=== PATIENT | male | born 1960 | race Asian ===

== ENCOUNTER 2022-02-16 15:08 | Emergency (ER) | payer OTHER ==
[~2022-02-16] VITALS: Ht 170.2 cm; Wt 64.4 kg
[2022-02-16 15:08] VITALS: BP 149/95; TEMP 97.4
[~2022-02-16 15:08] MED LIST: ALBU90AE13 INH; ARIPIPRAZOLE15 MG PO; ARIPIPRAZOLE20 MG PO; BENZ1TAB43 PO; BENZTROPINE0.5 MG PO; BENZTROPINE2 MG PO; BISACODYL LAXATI5 MG PO; BREO ELLIPTA 101 INH INH; CELEXA10 MG PO; CELEXA20 MG PO; CELEXA40 MG PO; CITA20TA2 PO; CLON0.5T36 PO; CYAN10009 IM; DIVA250T2 PO; DIVA500T2 OR; DIVA500T2 PO; DIVALPROEX500 M1 PO; DOCU100C10 PO; DULCOLAX10 MG RE; DULCOLAX5 MG PO; FARXIGA10 MG PO; HYDR50CA21 PO; LITH300C3 PO; LITHIUM CARB150 MG PO; LITHIUM CARB300 M2 PO; LITHIUM CARB300 MG PO; LORA2INJ21 INJ; LORAZEPAM1 MG OR; MEDR150I3 IM; MEDR2.5T19 PO; METFORMIN HYDR850 MG PO; MOTRIN IB200 MG PO; NICOTINE T14 MG/24 H TD; OLANZAPINE20 M1 PO; PROVERA10 MG PO; PROVERA5 MG OR; PROVERA5 MG PO; QUET100T2 PO; QUET300T PO; RISP50IN IM; SENNA1 TAB PO; SEROQUEL100 MG OR; SEROQUEL200 MG OR; SEROQUEL200 MG PO; SEROQUEL300 MG OR; SEROQUEL50 MG OR; SERT50TA PO; TEMA15CA19 PO; VENTOLIN; VITAMIN B-121000 MCG PO; ZIPR20IN IM; ZIPR80CA PO; ZYPREXA ZYDI15 MG OR; [UNRECOGNIZED DRUG - OTHER] PO
[2022-02-16 15:38] LABS: PLATELET COUNT 252 K/uL (142-355)
[2022-02-16 15:47] LABS: POTASSIUM 4.1 mmol/L (3.6-5.2)
[2022-02-16] MEDS ORDERED: DONEPEZIL HYDRO10 M1 PO (18:18)
[2022-02-16] MEDS ORDERED: BREO ELLIPTA 101 INH INH (18:20)
[2022-02-16] MEDS ORDERED: B-121000 MC5 PO (18:22)
[2022-02-16] MEDS ORDERED: DIVA250T PO (18:23)
[2022-02-16] MEDS ORDERED: DIVA500T2 PO (18:24)
[2022-02-16] MEDS ORDERED: EUTHYROX50 MCG PO (18:26)
[2022-02-16] MEDS ORDERED: LACTULOSE10 GM/15 M PO (18:26)
[2022-02-16] MEDS ORDERED: PROVERA10 MG PO (18:32)
[2022-02-16] MEDS ORDERED: PROVERA5 MG PO (18:33)
[2022-02-16] MEDS ORDERED: MOBIC7.5 M1 PO (18:34)
[2022-02-16] MEDS ORDERED: SENNA8.6 MG PO (18:35)
[2022-02-16] MEDS ORDERED: QUETIAPINE300 MG PO (18:36)
[2022-02-16] MEDS ORDERED: BENZTROPINE0.5 MG PO (18:38)
== END 2022-02-16 16:20 | disposition still patient (30) ==
LOC: ED 15:08
PROVIDERS: Emergency Medicine Emergency Medical Services
DX: R46.89 Other symptoms and signs involving appearance and behavior (principal); R45.1 Restlessness and agitation; Z11.52 Encounter for screening for COVID-19; Z04.6 Encounter for general psychiatric examination, requested by authority
CPT/HCPCS: 80053; 85027; 87635; 93005; 99283; U0003